=== PATIENT | male | born 2000 | race Hispanic/Latino ===

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

== ENCOUNTER 2018-07-06 22:50 | Emergency (ER) | payer OTHER ==
[2018-07-07] MEDS ORDERED: TETRACAINE HCL 0.5% 2ML OPTH ONE (00:14)
[2018-07-07] MEDS ORDERED: FLUORESCEIN SODIUM 0.6 MG/WRAP ONE (00:14)
[2018-07-07] MEDS ORDERED: LIDOCAINE 1% MPF 5 ML VIAL ONE (00:14)
--- NOTE | 2018-07-07 01:01 | ER ---
Nurse's Notes [facility] Name: Margarito Schultz Age: 17 yrs Sex: Male : 2000 Arrival Date: 07/06/2018 Time: 22:57 Bed 15 Private MD: Diagnosis: Laceration without foreign body of right eyelid and periocular area Presentation: 07/06 22:59 Presenting complaint: Patient states: I was examining the end of a pool stick when I jb4 got startled and jumped and accidently shoved the pool stick into my eye trying to move out of the way of those playing pool. 22:59 Transition of care: patient was not received from another setting of care. Complicating jb4 Factors: There are no complicating factors for this patient. Onset of symptoms was July 06, 2018. Risk Assessment: Do you want to hurt yourself or someone else? Patient reports no desire to harm self or others. Initial Sepsis Screen: Does the patient meet any 2 criteria? HR > 90 bpm. Yes Does the patient have a suspected source of infection? No. Patient's initial sepsis screen is negative. Care prior to arrival: None. 22:59 Method Of Arrival: Ambulatory jb4 22:59 Acuity: JI 3 jb4 Triage Assessment: 22:59 General: Appears in no apparent distress. comfortable, Behavior is calm, cooperative, jb4 appropriate for age. Pain: Complains of pain in right supraorbital ridge Pain does not radiate. Pain currently is 2 out of 10 on a pain scale. EENT: No signs and/or symptoms were reported regarding the EENT system. Neuro: Level of Consciousness is awake, alert, obeys commands, Oriented to person, place, time, situation, Pupils are PERRLA. Cardiovascular: Patient's skin is warm and dry. Respiratory: Airway is patent Respiratory effort is even, unlabored, Respiratory pattern is regular, symmetrical. GI: No signs and/or symptoms were reported involving the gastrointestinal system. : No signs and/or symptoms were reported regarding the genitourinary system. Derm: Skin is intact, Skin is pink, warm \T\ dry. Musculoskeletal: Circulation, motion, and sensation intact. Injury Description: Laceration sustained to right supraorbital ridge is clean, 0.5 to 2.5 cm long, not bleeding. Historical: - Allergies: 22:59 No Known Allergies; jb4 - Home Meds: 22:59 None [Active]; jb4 - PMHx: 22:59 Asthma; jb4 - PSHx: 22:59 left foot; jb4 - Immunization history:: Adult Immunizations up to date, Last tetanus immunization: up to date Flu vaccine is not up to date. - Social history:: Smoking status: Patient/guardian denies using tobacco, Patient/guardian denies using alcohol. - Ebola Screening: : No symptoms or risks identified at this time. Screenin:59 Abuse screen: Denies threats or abuse. Nutritional screening: No deficits noted. jb4 Tuberculosis screening: No symptoms or risk factors identified. Fall Risk None identified. Assessment: 22:59 General: see triage assessment.. jb4 23:54 Reassessment: Patient appears in no apparent distress at this time. Patient and/or jb4 family updated on plan of care and expected duration. Pain level reassessed. Patient is alert, oriented x 3, equal unlabored respirations, skin warm/dry/pink. 07/07 00:52 Reassessment: Patient appears in no apparent distress at this time. Patient and/or jb4 family updated on plan of care and expected duration. Pain level reassessed. Patient is alert, oriented x 3, equal unlabored respirations, skin warm/dry/pink. Provider at the bedside. 01:47 Reassessment: Patient appears in no apparent distress at this time. Patient and/or jb4 family updated on plan of care and expected duration. Pain level reassessed. Patient is alert, oriented x 3, equal unlabored respirations, skin warm/dry/pink. Discussed D/c, F/u with pt and pt's family, questions and concerns addressed, denies further questions or concerns. Vital Signs: 07/06 22:59 BP 143 / 84; Pulse 99; Resp 16; Temp 99.0(O); Pulse Ox 100% on R/A; Weight 86.64 kg jb4 (R); Height 6 ft. 2 in. (187.96 cm) (R); Pain 08/07; 23:45 BP 122 / 83; Pulse 87; Resp 16; Pulse Ox 100% on R/A; jb4 07/07 00:45 BP 124 / 76; Pulse 85; Resp 16; Pulse Ox 100% on R/A; jb4 01:47 BP 132 / 88; Pulse 73; Resp 16; Pulse Ox 93% on R/A; jb4 07/06 22:59 Body Mass Index 24.52 (86.64 kg, 187.96 cm) jb4 Visual Acuity: 07/06 23:15 Left Eye Visual acuity 20/20, Pupil size 4 mm, Normal, React To Light, Reactive To jb4 Accomodation; Right Eye Visual acuity 20/20, Pupil size 4 mm, Normal, React To Light, Reactive To Accomodation; Both Eyes Visual acuity 20/20; Without Lenses; ED Course: 22:57 Patient arrived in ED. ag3 22:59 Arm band placed on left wrist. jb4 22:59 Patient has correct armband on for positive identification. Bed in low position. Call jb4 light in reach. Side rails up X 1. Pulse ox on. NIBP on. 23:06 Eldon Rowe RN is Primary Nurse. jb4 23:10 Triage completed. jb4 23:21 Partha Phillips NP is PHCP. pm1 23:21 Paulina Lenz MD is Attending Physician. pm1 07/07 00:33 Assist provider with laceration repair on right supraorbital ridge that was 2.5 cm. or jb4 less using sutures. Set up tray. Performed by Partha Phillips NP Patient tolerated well. 01:49 Patient did not have IV access during this emergency room visit. jb4 Administered Medications: 00:33 Drug: Lidocaine (1 %) 5 ml {Note: administered by ER provider.} Volume: 5 ml; Route: jb4 Infiltration; 01:51 Follow up: Response: No adverse reaction jb4 00:50 Drug: Tetracaine Drops 0.5 % 1 drops Route: Ophthalmic; Site: right eye; jb4 01:09 Follow up: Response: No adverse reaction; Administered by ER provider. jb4 01:47 Drug: Gentamicin Drops 0.3 % 2 drops Route: Ophthalmic; Site: right eye; jb4 01:51 Follow up: Response: No adverse reaction jb4 Intake: Outcome: : Discharge ordered by . pm1 01:47 Discharged to home ambulatory, with family. jb4 01:47 Condition: stable 01:47 Discharge instructions given to patient, family, Instructed on discharge instructions, follow up and referral plans. medication usage, Demonstrated understanding of instructions, follow-up care, medications, Prescriptions given X 1. 01:52 Patient left the ED. jb4 Signatures: Partha Phillips NP FULL CHARGE BOOKKEEPER pm1 Eldon Rowe RN RN jb4 Kellie Hernandez ag3
--- NOTE | 2018-07-07 01:01 | EDPHYS ---
Physician Documentation [facility] Name: Margarito Schultz Age: 17 yrs Sex: Male : 2000 Arrival Date: 07/06/2018 Time: 22:57 Bed 15 Private MD: ED Physician Paulina Lenz HPI: 07/07 00:00 This 17 yrs old Male presents to ER via Ambulatory with complaints of pm1 Laceration right eyelid. 00:00 The patient sustained Laceration to right eyelid, caused by pool cue. Onset: The pm1 symptoms/episode began/occurred just prior to arrival. Aggravated by nothing. Alleviated by nothing. Associated signs and symptoms: Pertinent negatives: visual changes. Patient wears soft contacts. The patient has not experienced similar symptoms in the past. Patient was holding a pool cue that did not have the rounded tip to it. The ball on the pool table jumped off the table towards him so he moved out of the way. He accidentally poked his right eyelid causing a laceration. His contact on the right eye popped out. Reports no visual deficits to right eye. Tetanus shot 2 years ago. Historical: - Allergies: 07/06 22:59 No Known Allergies; jb4 - Home Meds: 22:59 None [Active]; jb4 - PMHx: 22:59 Asthma; jb4 - PSHx: 22:59 left foot; jb4 - Immunization history:: Adult Immunizations up to date, Last tetanus immunization: up to date Flu vaccine is not up to date. - Social history:: Smoking status: Patient/guardian denies using tobacco, Patient/guardian denies using alcohol. - Ebola Screening: : No symptoms or risks identified at this time. ROS: 07/07 00:00 Constitutional: Negative for fever, chills, and weight loss, ENT: Negative for injury, pm1 pain, and discharge, Neck: Negative for injury, pain, and swelling, Cardiovascular: Negative for chest pain, palpitations, and edema, Respiratory: Negative for shortness of breath, cough, wheezing, and pleuritic chest pain. Abdomen/GI: Negative for abdominal pain, nausea, vomiting, diarrhea, and constipation, Back: Negative for injury and pain, : Negative for injury, bleeding, discharge, and swelling, MS/Extremity: Negative for injury and deformity, Skin: Negative for injury, rash, and discoloration, Neuro: Negative for headache, weakness, numbness, tingling, and seizure. Eyes: Positive for redness, of the right eye, laceration to right eyelid, Negative for blurry vision, foreign body sensation, vision loss, visual disturbance. Exam: 00:00 Visual Acuity: I have reviewed the nursing documentation. pm1 00:00 Constitutional: This is a well developed, well nourished patient who is awake, alert, and in no acute distress. Head/Face: Normocephalic, atraumatic. ENT: Nares patent. No nasal discharge, no septal abnormalities noted. Tympanic membranes are normal and external auditory canals are clear. Oropharynx with no redness, swelling, or masses, exudates, or evidence of obstruction, uvula midline. Mucous membranes moist. 00:00 Neck: Trachea midline, no thyromegaly or masses palpated, and no cervical lymphadenopathy. Supple, full range of motion without nuchal rigidity, or vertebral point tenderness. No Meningismus. Chest/axilla: Normal chest wall appearance and motion. Nontender with no deformity. No lesions are appreciated. Cardiovascular: Regular rate and rhythm with a normal S1 and S2. No gallops, murmurs, or rubs. Normal PMI, no JVD. No pulse deficits. Respiratory: Lungs have equal breath sounds bilaterally, clear to auscultation and percussion. No rales, rhonchi or wheezes noted. No increased work of breathing, no retractions or nasal flaring. Abdomen/GI: Soft, non-tender, with normal bowel sounds. No distension or tympany. No guarding or rebound. No evidence of tenderness throughout. Back: No spinal tenderness. No costovertebral tenderness. Full range of motion. Skin: Warm, dry with normal turgor. Normal color with no rashes, no lesions, and no evidence of cellulitis. MS/ Extremity: Pulses equal, no cyanosis. Neurovascular intact. Full, normal range of motion. 00:00 Eyes: Pupils: no acute changes, normal size, normal reaction to light, Extraocular movements: intact throughout, Conjunctiva: injected, in the right eye, Corneas: abrasion, is not appreciated, foreign body, is not appreciated, a fluorescein strip employed to appreciate the findings, Sclera: no appreciated abnormality, Lids and lashes: laceration, approximately 20 mm(s), of the right upper eyelid. 00:00 Neuro: Orientation: is normal, Motor: is normal, Gait: is steady, at a normal pace, without difficulty. Vital Signs: 07/06 22:59 BP 143 / 84; Pulse 99; Resp 16; Temp 99.0(O); Pulse Ox 100% on R/A; Weight 86.64 kg jb4 (R); Height 6 ft. 2 in. (187.96 cm) (R); Pain 08/07; 23:45 BP 122 / 83; Pulse 87; Resp 16; Pulse Ox 100% on R/A; jb4 07/07 00:45 BP 124 / 76; Pulse 85; Resp 16; Pulse Ox 100% on R/A; jb4 01:47 BP 132 / 88; Pulse 73; Resp 16; Pulse Ox 93% on R/A; jb4 07/06 22:59 Body Mass Index 24.52 (86.64 kg, 187.96 cm) jb4 Visual Acuity: 07/06 23:15 Left Eye Visual acuity 20/20, Pupil size 4 mm, Normal, React To Light, Reactive To jb4 Accomodation; Right Eye Visual acuity 20/20, Pupil size 4 mm, Normal, React To Light, Reactive To Accomodation; Both Eyes Visual acuity 20/20; Without Lenses; Laceration: 07/07 00:58 Wound Repair of 2cm ( 0.8in ) subcutaneous laceration to right supraorbital ridge. pm1 Linear shaped.. Distal neuro/vascular/tendon intact. Anesthesia: Local anesthetic administered with 1 mls of 1% lidocaine. Wound prep: Extensive cleansing with hibiclenz by nj, Wound irrigation with saline by nj, Wound explored extensively, Copious irrigation. Skin closed with 7 7-0 Prolene using simple sutures and sterile technique. Dressed with Neosporin. Patient tolerated well. MDM: 07/06 23:26 Patient medically screened. pm1 07/07 00:58 Data reviewed: vital signs. Data interpreted: Pulse oximetry: on room air is 100 %. pm1 Interpretation: normal. Counseling: I had a detailed discussion with the patient and/or guardian regarding: the historical points, exam findings, and any diagnostic results supporting the discharge/admit diagnosis, the need for outpatient follow up, suture removal in 4-5 days, to return to the emergency department if symptoms worsen or persist or if there are any questions or concerns that arise at home. 01:14 ED course: No corneal abrasion visualized on eye examination, however patient's soft pm1 contact was removed by injury. Will cover the patient with pseudomonas coverage. 07/06 23:59 Order name: Visual Acuity; Complete Time: 00:01 pm1 07/06 23:59 Order name: Eye Tray; Complete Time: 00:09 pm1 07/06 23:59 Order name: Fluoresene Opth strip; Complete Time: 00:09 pm1 07/06 23:59 Order name: Prolene, Sutures; Complete Time: 00:14 pm1 07/06 23:59 Order name: Dressing - Wound; Complete Time: 01:10 pm1 07/06 23:59 Order name: Gloves, Sterile; Complete Time: 00:10 pm1 07/06 23:59 Order name: Setup Suture Tray; Complete Time: 00:09 pm1 Administered Medications: 00:33 Drug: Lidocaine (1 %) 5 ml {Note: administered by ER provider.} Volume: 5 ml; Route: jb4 Infiltration; 01:51 Follow up: Response: No adverse reaction jb4 00:50 Drug: Tetracaine Drops 0.5 % 1 drops Route: Ophthalmic; Site: right eye; jb4 01:09 Follow up: Response: No adverse reaction; Administered by ER provider. jb4 01:47 Drug: Gentamicin Drops 0.3 % 2 drops Route: Ophthalmic; Site: right eye; jb4 01:51 Follow up: Response: No adverse reaction jb4 Disposition: 02:53 Co-signature as Attending Physician, Paulina Lenz MD. nc2 Disposition: 07/07/18 01:01 Discharged to Home. Impression: Laceration without foreign body of right eyelid and periocular area. - Condition is Stable. - Discharge Instructions: Facial Laceration. - Prescriptions for Ciloxan 0.3 % Ophthalmic Drops - instill 2 drop by OPHTHALMIC route every 6 hours for 7 days; 5 milliliter. - Medication Reconciliation Form, Thank You Letter, Antibiotic Education form. - Follow up: Emergency Department; When: As needed; Reason: Worsening of condition. Follow up: Private Physician; When: 2 - 3 days; Reason: Recheck today's complaints, Continuance of care, Re-evaluation by your physician. - Problem is new. - Symptoms have improved. Signatures: Partha Phillips NP NURSING INFORMATION SYSTEMS COORDINATOR pm1 Eldon Rowe, RN RN jb4 Paulina Lenz MD MD ma2 Corrections: (The following items were deleted from the chart) 01:52 01:01 07/07/2018 01:01 Discharged to Home. Impression: Laceration without foreign body jb4 of right eyelid and periocular area. Condition is Stable. Forms are Medication Reconciliation Form, Thank You Letter, Antibiotic Education, Prescription Opioid Use. Follow up: Emergency Department; When: As needed; Reason: Worsening of condition. Follow up: Private Physician; When: 2 - 3 days; Reason: Recheck today's complaints, Continuance of care, Re-evaluation by your physician. Problem is new. Symptoms have improved. pm1
[2018-07-07] MEDS ORDERED: GENTAMICIN 0.3% OPTH DROP 5ML ONE (01:42)
== END 2018-07-07 01:52 | disposition home or self-care (01) ==
LOC: ER 22:50
PROC: 0JQ10ZZ Repair Face Subcutaneous Tissue and Fascia, Open Approach (ICD-10-PCS; principal; 2018-07-06)
DX: S01.111A Laceration without foreign body of right eyelid and periocular area, initial encounter (principal); W22.8XXA Striking against or struck by other objects, initial encounter
CPT/HCPCS: 99284

== ENCOUNTER 2018-07-12 16:10 | Emergency (ER) | payer OTHER ==
--- NOTE | 2018-07-12 16:37 | ER ---
Nurse's Notes [facility] Name: Margarito Schultz Age: 17 yrs Sex: Male : 2000 Arrival Date: 07/12/2018 Time: 16:14 Bed 11 Private MD: Diagnosis: Encounter for removal of sutures Presentation: 07/12 16:32 Presenting complaint: Patient states: needs sutures removed from right eyelid. iw Transition of care: patient was not received from another setting of care. Onset of symptoms was July 12, 2018. Risk Assessment: Do you want to hurt yourself or someone else? Patient reports no desire to harm self or others. Initial Sepsis Screen: Does the patient meet any 2 criteria? No. Patient's initial sepsis screen is negative. Does the patient have a suspected source of infection? No. Patient's initial sepsis screen is negative. Care prior to arrival: None. 16:32 Method Of Arrival: Ambulatory iw 16:32 Acuity: JI 5 iw 16:32 Presenting complaint: Patient states: i am here for suture removal in my right eyelid. mg2 suture applied 6 days ago. Transition of care: patient was not received from another setting of care. Onset of symptoms was June 2018. Risk Assessment: Do you want to hurt yourself or someone else? Patient reports no desire to harm self or others. Initial Sepsis Screen: Does the patient meet any 2 criteria? No. Patient's initial sepsis screen is negative. Does the patient have a suspected source of infection? No. Patient's initial sepsis screen is negative. Care prior to arrival: None. 16:32 Method Of Arrival: Ambulatory mg2 16:32 Acuity: JI 5 mg2 Historical: - Allergies: 16:34 No Known Allergies; mg2 - Home Meds: 16:34 None [Active]; mg2 - PMHx: 16:33 Asthma; iw 16:34 None; mg2 - PSHx: 16:33 left foot; iw 16:34 left foor surgery; mg2 - Immunization history:: Flu vaccine status is unknown. - Social history:: Smoking status: Patient/guardian denies using tobacco, Patient/guardian denies using alcohol, street drugs, IV drugs. - Ebola Screening: : Patient negative for fever greater than or equal to 101.5 degrees Fahrenheit, and additional compatible Ebola Virus Disease symptoms Patient denies exposure to infectious person Patient denies travel to an Ebola-affected area in the 21 days before illness onset No symptoms or risks identified at this time No symptoms or risks identified at this time. Screenin:34 Abuse screen: Denies threats or abuse. Denies injuries from another. Nutritional iw screening: No deficits noted. Tuberculosis screening: No symptoms or risk factors identified. Fall Risk None identified. Assessment: 16:34 General: Appears in no apparent distress. comfortable, Behavior is calm, cooperative. iw Pain: Denies pain. Neuro: Level of Consciousness is awake, alert, obeys commands, Oriented to person, place, time, situation, Moves all extremities. Full function. Cardiovascular: Patient's skin is warm and dry. Derm: Skin is intact, is healthy with good turgor. Vital Signs: 16:34 BP 122 / 63; Pulse 86; Resp 18; Temp 98.7; Pulse Ox 100% on R/A; Weight 85.28 kg; mg2 Height 6 ft. 2 in. (187.96 cm); Pain 0/10; 16:34 Body Mass Index 24.14 (85.28 kg, 187.96 cm) mg2 ED Course: 16:14 Patient arrived in ED. sb2 16:22 Ganga Urban PA is PHCP. jr8 16:22 Mehdi Pinto MD is Attending Physician. jr8 16:24 Ridge Cui, LEAH is Primary Nurse. mg2 16:33 Triage completed. iw 16:34 Arm band placed on. iw 16:52 Patient has correct armband on for positive identification. Pulse ox on. NIBP on. mg2 16:52 No provider procedures requiring assistance completed. Patient did not have IV access mg2 during this emergency room visit. Wound care: to laceration located on right eyelid was suture removed-7 stitches Patient tolerated well. Administered Medications: No medications were administered Outcome: 16:36 Discharge ordered by . jr8 16:53 Discharged to home ambulatory, with family. mg2 16:53 Condition: stable 16:53 Discharge instructions given to patient, family, Instructed on discharge instructions, follow up and referral plans. Demonstrated understanding of instructions, follow-up care. 16:53 Patient left the ED. mg2 Signatures: Argentina Callahan RN RN Ganga Urban PA PA jr8 Carlita Marvin sb2 Ridge Cui RN RN mg2
--- NOTE | 2018-07-12 16:37 | EDPHYS ---
Physician Documentation [facility] Name: Margarito Schultz Age: 17 yrs Sex: Male : 2000 Arrival Date: 07/12/2018 Time: 16:14 Bed 11 Private MD: ED Physician Mehdi Pinto HPI: 07/12 16:48 This 17 yrs old Male presents to ER via Ambulatory with complaints of Suture jr8 Removal. 16:48 The patient has sutures on the right eye. Previous treatment: The patient was initially jr8 treated 6 day(s) ago. Sutures/timi progress: The patient has no c/o's. The wound is well-healing with no redness, swelling, discharge, or dehiscence reported. The patient has not experienced similar symptoms in the past. The patient has not recently seen a physician. Historical: - Allergies: 16:34 No Known Allergies; mg2 - Home Meds: 16:34 None [Active]; mg2 - PMHx: 16:33 Asthma; iw 16:34 None; mg2 - PSHx: 16:33 left foot; iw 16:34 left foor surgery; mg2 - Immunization history:: Flu vaccine status is unknown. - Social history:: Smoking status: Patient/guardian denies using tobacco, Patient/guardian denies using alcohol, street drugs, IV drugs. - Ebola Screening: : Patient negative for fever greater than or equal to 101.5 degrees Fahrenheit, and additional compatible Ebola Virus Disease symptoms Patient denies exposure to infectious person Patient denies travel to an Ebola-affected area in the 21 days before illness onset No symptoms or risks identified at this time No symptoms or risks identified at this time. ROS: 16:48 Constitutional: Negative for fever, chills, and weight loss. jr8 16:48 All other systems are negative. Exam: 16:48 Head/Face: Normocephalic, atraumatic. ENT: Nares patent. No nasal discharge, no jr8 septal abnormalities noted. Tympanic membranes are normal and external auditory canals are clear. Oropharynx with no redness, swelling, or masses, exudates, or evidence of obstruction, uvula midline. Mucous membranes moist. Cardiovascular: Regular rate and rhythm with a normal S1 and S2. No gallops, murmurs, or rubs. Normal PMI, no JVD. No pulse deficits. Respiratory: Lungs have equal breath sounds bilaterally, clear to auscultation and percussion. No rales, rhonchi or wheezes noted. No increased work of breathing, no retractions or nasal flaring. Skin: Warm, dry with normal turgor. Normal color with no rashes, no lesions, and no evidence of cellulitis. MS/ Extremity: Pulses equal, no cyanosis. Neurovascular intact. Full, normal range of motion. Neuro: Awake and alert, GCS 15, oriented to person, place, time, and situation. Cranial nerves II-XII grossly intact. Motor strength 5/5 in all extremities. Sensory grossly intact. Cerebellar exam normal. Normal gait. 16:48 Eyes: Periorbital structures: appear normal, Pupils: equal, round, and reactive to light and accomodation, Extraocular movements: intact throughout, Conjunctiva: normal, Corneas: are normal, Sclera: no appreciated abnormality, Anterior chamber: normal, Lids and lashes: small 2 cm laceration with sutures in place noted to right eyelid. Mild bruising still present. No erythema or discharge. well approximated . Vital Signs: 16:34 BP 122 / 63; Pulse 86; Resp 18; Temp 98.7; Pulse Ox 100% on R/A; Weight 85.28 kg; mg2 Height 6 ft. 2 in. (187.96 cm); Pain 0/10; 16:34 Body Mass Index 24.14 (85.28 kg, 187.96 cm) mg2 Procedures: 16:48 Suture/Staple removal: Removed 10 sutures, from right eyelid, site appears well healed, jr8 dressed with Neosporin, Patient tolerated well. MDM: 16:22 Patient medically screened. 8 16:36 Data reviewed: vital signs, nurses notes, and as a result, I will discharge patient. 8 Data interpreted: Pulse oximetry: on room air is 100 %. Interpretation: normal. Counseling: I had a detailed discussion with the patient and/or guardian regarding: the historical points, exam findings, and any diagnostic results supporting the discharge/admit diagnosis, the need for outpatient follow up, a family practitioner, to return to the emergency department if symptoms worsen or persist or if there are any questions or concerns that arise at home. Administered Medications: No medications were administered Disposition: 18:11 Co-signature as Attending Physician, Mehdi Pinto MD Available for consultation at ps1 all times . Disposition: 07/12/18 16:36 Discharged to Home. Impression: Encounter for removal of sutures. - Condition is Stable. - Discharge Instructions: Suture Removal, Care After. - Medication Reconciliation Form, Thank You Letter, Antibiotic Education, Prescription Opioid Use form. - Follow up: Private Physician; When: As needed; Reason: Wound Recheck, Recheck today's complaints, Continuance of care, Re-evaluation by your physician. - Problem is new. - Symptoms have improved. Signatures: Argentina Callahan, RN RN iw Ganga Urban PA PA jr8 Mehdi Pinto MD MD ps1 Ridge Cui RN RN mg2 Corrections: (The following items were deleted from the chart) 16:53 16:36 07/12/2018 16:36 Discharged to Home. Impression: Encounter for removal of mg2 sutures. Condition is Stable. Forms are Medication Reconciliation Form, Thank You Letter, Antibiotic Education, Prescription Opioid Use. Follow up: Private Physician; When: As needed; Reason: Wound Recheck, Recheck today's complaints, Continuance of care, Re-evaluation by your physician. Problem is new. Symptoms have improved. jr8
== END 2018-07-12 16:53 | disposition home or self-care (01) ==
LOC: ER 16:10
DX: S01.111D Laceration without foreign body of right eyelid and periocular area, subsequent encounter (principal); W22.8XXD Striking against or struck by other objects, subsequent encounter
CPT/HCPCS: 99283

== ENCOUNTER 2018-11-19 18:14 | Emergency (ER) | payer OTHER ==
[2018-11-19 20:33] LABS: Absolute Lymphocytes (CBC) 1.7 K/uL (0.7-4.9); Absolute Monocytes 0.3 K/uL (0.1-1.3); Absolute Neutrophil 2.7 K/uL (1.8-8.0); Basophils % 0.5 % (0-1.3); Eosinophils % 1.5 % (0-4.4); Hematocrit 43.8 % (39.6-49.0); Lymphocytes % 35.4 % (15.3-44.8); MPV 8.8 fL (7.6-11.3); Monocytes % 6.2 % (3.3-12.3); RBC Red Blood Cell Count 4.85 M/uL (4.33-5.43)
--- NOTE | 2018-11-19 20:48 | RAD REPORT ---
EXAM DESCRIPTION: RAD - Chest Single View - 11/19/2018 8:41 pm CLINICAL HISTORY: PALPITATIONS Chest pain. COMPARISON: Chest Pa And Lat (2 Views) dated 08/18/2016 FINDINGS: Portable technique limits examination quality. The lungs are grossly clear. The heart is normal in size. No displaced fractures. IMPRESSION: No acute intrathoracic process suspected.
[2018-11-19 20:53] LABS: BUN Blood Urea Nitrogen 14 mg/dL (7-18); Bicarbonate 30 mmol/L (21-32); Glucose Level 87 mg/dL (74-106); Potassium 4.1 mmol/L (3.5-5.1); Sodium Level 141 mmol/L (136-145); Thyroid Stimulating Hormone 0.591 uIU/mL (0.360-3.740)
--- NOTE | 2018-11-19 21:22 | ER ---
Nurse's Notes [facility] Name: Margarito Schultz Age: 18 yrs Sex: Male : 2000 Arrival Date: 11/19/2018 Time: 18:19 Bed 28 Private MD: Unknown, Unknown Diagnosis: Palpitation. Supericial thrombosed vein right loer quadrant of abdomen Presentation: 11/19 18:30 Presenting complaint: Patient states: I have been having a weird feeling in my chest la1 every once and a while the last few days. Since then I have been very aware of my heart beat. Transition of care: patient was not received from another setting of care. Onset of symptoms was November 19, 2018. Risk Assessment: Do you want to hurt yourself or someone else? Patient reports no desire to harm self or others. Initial Sepsis Screen: Does the patient meet any 2 criteria? No. Patient's initial sepsis screen is negative. Does the patient have a suspected source of infection? No. Patient's initial sepsis screen is negative. Care prior to arrival: None. 18:30 Method Of Arrival: Ambulatory la1 18:30 Acuity: JI 3 la1 Historical: - Allergies: 18:30 No Known Allergies; la1 - Home Meds: 18:30 None [Active]; la1 - PMHx: 18:30 Asthma; la1 - Immunization history:: Adult Immunizations up to date. - Social history:: Smoking status: Patient/guardian denies using tobacco. - Ebola Screening: : No symptoms or risks identified at this time. Screenin:00 Fall Risk None identified. fu Assessment: 20:28 General: Appears in no apparent distress. Behavior is calm, cooperative, appropriate fu for age, Reports shortness of breath when having chest discomfort, that started about 2 weeks ago. Denies fever, fatigue, chills. Pain: Denies pain. Neuro: No deficits noted. Cardiovascular: Reports chest discomfort. since 2 weeks ago. Denies diaphoresis, fatigue, lightheadedness, nausea, palpitations, syncope, vomiting, Rhythm is regular. Respiratory: Airway is patent Respiratory effort is even, unlabored. GI: No signs and/or symptoms were reported involving the gastrointestinal system. : No signs and/or symptoms were reported regarding the genitourinary system. Derm: No signs and/or symptoms reported regarding the dermatologic system. Musculoskeletal: No signs and/or symptoms reported regarding the musculoskeletal system. 21:30 Reassessment: Patient is alert, oriented x 3, equal unlabored respirations, skin fu warm/dry/pink. Vital Signs: 18:29 BP 147 / 83; la1 18:29 Pulse 89; Resp 16; Temp 97.9(TE); Pulse Ox 98% on R/A; Weight 83.91 kg; Height 6 ft. 0 la1 in. (182.88 cm); 20:30 BP 124 / 82; Pulse 81; Resp 18; Pulse Ox 100% ; Pain 0/10; fu 18:29 Body Mass Index 25.09 (83.91 kg, 182.88 cm) la1 ED Course: 18:19 Patient arrived in ED. ag5 18:20 Unknown, Unknown is Private Physician. ag5 18:31 Triage completed. la1 18:31 Arm band placed on left wrist. la1 19:26 Francisco J Clements, RN is Primary Nurse. fu 19:38 Norm Blake MD is Attending Physician. pkl 20:00 Bed in low position. Side rails up X2. fu 20:22 Initial lab(s) drawn, by me, sent to lab. EKG done, by ED staff. Inserted saline lock: lt1 20 gauge in left antecubital area, using aseptic technique. 20:42 XRAY CXR (1 view) In Process Unspecified. EDMS 21:20 Salomón Mora MD is Referral Physician. pkl 21:40 No provider procedures requiring assistance completed. IV discontinued, bleeding fu controlled. Administered Medications: No medications were administered Outcome: 21:22 Discharge ordered by . pkl 21:46 Discharge instructions given to patient, Instructed on discharge instructions, follow fu up and referral plans. Demonstrated understanding of instructions, follow-up care. 22:06 Patient left the ED. fu Signatures: Dispatcher [employer] EDMS Norm Blake MD MD pk Marky Salvador RN RN [facility] Francisco J Clements RN RN fu [place], [address] Tessa Hwang lt1 Corrections: (The following items were deleted from the chart) 18:32 18:29 Pulse 106bpm; Resp 16bpm; Pulse Ox 98% RA; Temp 97.9F Temporal; 83.91 kg; Height la1 6 ft. 0 in.; BMI: 25.0; la1 22:04 22:02 Condition: stable fu fu
--- NOTE | 2018-11-19 21:22 | EDPHYS ---
Physician Documentation [facility] Name: Margarito Schultz Age: 18 yrs Sex: Male : 2000 Arrival Date: 11/19/2018 Time: 18:19 Bed 28 Private MD: Unknown, Unknown ED Physician Norm Blake HPI: 11/19 20:18 This 18 yrs old Male presents to ER via Ambulatory with complaints of pkl Shortness Of Breath, Chest Pounding. 20:18 The patient presents with a history of heart racing. Onset: The symptoms/episode pkl began/occurred 3 week(s) ago. Associated signs and symptoms: Pertinent positives: SOB, pain anterior right upper thigh that resolved after a few days. Patient also noticed a short segment of thrombosed vein ( about 4 cm ) on the right lower quadrant of abdomen that persisted until now. Patient said the patient said the palpitations recurred again a few times over the last few days. Historical: - Allergies: 18:30 No Known Allergies; la1 - Home Meds: 18:30 None [Active]; la1 - PMHx: 18:30 Asthma; la1 - Immunization history:: Adult Immunizations up to date. - Social history:: Smoking status: Patient/guardian denies using tobacco. - Ebola Screening: : No symptoms or risks identified at this time. ROS: 20:18 Eyes: Negative for injury, pain, redness, and discharge, ENT: Negative for injury, pkl pain, and discharge, Neck: Negative for injury, pain, and swelling. 20:18 Cardiovascular: Positive for palpitations. 20:18 Respiratory: Negative for cough, shortness of breath. 20:18 Abdomen/GI: Negative for abdominal pain, nausea, vomiting, and diarrhea. 20:18 Back: Negative for acute changes. 20:18 : Negative for urinary symptoms. 20:18 MS/extremity: Negative for acute changes. 20:18 Skin: Positive for short segment ( about 4 cm ) thrombosed vein at right quadrant of abdomen. 20:18 Neuro: Negative for altered mental status. Exam: 20:18 Head/Face: Normocephalic, atraumatic. Eyes: Pupils equal round and reactive to light, pkl extra-ocular motions intact. Lids and lashes normal. Conjunctiva and sclera are non-icteric and not injected. Cornea within normal limits. Periorbital areas with no swelling, redness, or edema. ENT: Nares patent. No nasal discharge, no septal abnormalities noted. Tympanic membranes are normal and external auditory canals are clear. Oropharynx with no redness, swelling, or masses, exudates, or evidence of obstruction, uvula midline. Mucous membranes moist. Neck: Trachea midline, no thyromegaly or masses palpated, and no cervical lymphadenopathy. Supple, full range of motion without nuchal rigidity, or vertebral point tenderness. No Meningismus. Chest/axilla: Normal chest wall appearance and motion. Nontender with no deformity. No lesions are appreciated. Cardiovascular: Regular rate and rhythm with a normal S1 and S2. No gallops, murmurs, or rubs. Normal PMI, no JVD. No pulse deficits. Respiratory: Lungs have equal breath sounds bilaterally, clear to auscultation and percussion. No rales, rhonchi or wheezes noted. No increased work of breathing, no retractions or nasal flaring. 20:18 Abdomen/GI: Bowel sounds: normal, Palpation: abdomen is soft and non-tender, in all quadrants, short segment ( about 4 cm ) of thrombosed vein noted at right lower quadrant. 20:18 Back: Exam negative for acute changes. 20:18 : Exam negative for acute changes. 20:18 Musculoskeletal/extremity: Exam is negative for acute changes. 20:18 Skin: Exam negative for rash. 20:18 Neuro: Orientation: is normal, Mentation: is normal, Cranial nerves: grossly normal, Motor: is normal, Gait: is steady. Vital Signs: 18:29 BP 147 / 83; la1 18:29 Pulse 89; Resp 16; Temp 97.9(TE); Pulse Ox 98% on R/A; Weight 83.91 kg; Height 6 ft. 0 la1 in. (182.88 cm); 20:30 BP 124 / 82; Pulse 81; Resp 18; Pulse Ox 100% ; Pain 0/10; fu 18:29 Body Mass Index 25.09 (83.91 kg, 182.88 cm) la1 MDM: 19:39 Patient medically screened. pkl 21:20 Data reviewed: vital signs, nurses notes, lab test result(s), radiologic studies, plain pkl films. 21:22 ED course: Discussed lab. and X'rays with patient and Mother. Advised to follow with [facility] ( Dr. Mora ) next week. Also to take a baby aspirin daily for the superficial thrombosed vein. Patient and Mother understood the instructions. 11/19 20:06 Order name: CBC with Diff; Complete Time: 21:12 pkl 11/19 20:06 Order name: Chem 7; Complete Time: 21:12 pkl 11/19 20:06 Order name: D-Dimer; Complete Time: 21:12 pkl 11/19 20:06 Order name: XRAY CXR (1 view); Complete Time: 21:12 pkl 11/19 20:06 Order name: TSH; Complete Time: 21:12 pk Administered Medications: No medications were administered Disposition: 11/19/18 21:22 Discharged to Home. Impression: Palpitation. Supericial thrombosed vein right loer quadrant of abdomen. - Condition is Stable. - Medication Reconciliation Form, Thank You Letter, Antibiotic Education, Prescription Opioid Use form. - Follow up: Salomón Mora MD; When: 2 - 3 days; Reason: Re-evaluation by your physician. - Problem is new. - Symptoms have improved. Signatures: Dispatcher [employer] [facility] Norm Blake MD MD Marky Chavez RN RN laFrancisco J Jasmine RN RN fu Corrections: (The following items were deleted from the chart) 21:36 20:06 URINE DRUG SCREEN+CHEM UR.LAB.BRZ ordered. [facility] EDOK 22:06 21:22 11/19/2018 21:22 Discharged to Home. Impression: Palpitation. Supericial fu thrombosed vein right loer quadrant of abdomen. Condition is Stable. Forms are Medication Reconciliation Form, Thank You Letter, Antibiotic Education, Prescription Opioid Use. Follow up: Salomón Mora; When: 2 - 3 days; Reason: Re-evaluation by your physician. Problem is new. Symptoms have improved. [facility]
--- NOTE | 2018-11-20 10:07 | EKG ---
Test Date: 2018-11-19 Test Time: 19:19:06 Market Development Analyst: RAMY MEASUREMENT RESULTS: Intervals: Rate: 79 NH: 152 QRSD: 90 QT: 356 QTc: 408 [place]: P: 63 NH: 152 QRS: 78 T: 63 INTERPRETIVE STATEMENTS: Normal sinus rhythm Normal ECG No previous ECG available for comparison Electronically Signed On 11-20-18 10:05:29 CDT by Po Berrios
== END 2018-11-19 22:06 | disposition home or self-care (01) ==
LOC: ER 18:14
DX: R00.2 Palpitations (principal); I82.890 Acute embolism and thrombosis of other specified veins; J45.909 Unspecified asthma, uncomplicated
CPT/HCPCS: 36415; 71045; 80048; 84443; 85025; 85379; 93005; 99284

== ENCOUNTER 2019-02-11 18:03 | Emergency (ER) | payer OTHER ==
[2019-02-11 18:58] LABS: Absolute Lymphocytes (CBC) 3.3 K/uL (0.7-4.9); Basophils % 0.4 % (0-1.3); Hematocrit 41.4 % (39.6-49.0); MPV 8.6 fL (7.6-11.3); RBC Red Blood Cell Count 4.64 M/uL (4.33-5.43)
--- NOTE | 2019-02-11 19:07 | RAD REPORT ---
EXAM DESCRIPTION: RAD - Chest Pa And Lat (2 Views) - 02/11/2019 7:02 pm CLINICAL HISTORY: DYSPNEA Chest pain. COMPARISON: Chest Single View dated 11/19/2018; Chest Pa And Lat (2 Views) dated 08/18/2016 FINDINGS: The lungs are clear. The heart is normal in size. No displaced fractures. IMPRESSION: No acute or concerning finding suspected.
[2019-02-11 19:15] LABS: Potassium 3.8 mmol/L (3.5-5.1)
--- NOTE | 2019-02-11 19:29 | EDPHYS ---
Physician Documentation [facility] Name: Margarito Schultz Age: 18 yrs Sex: Male : 2000 Arrival Date: 02/11/2019 Time: 18:05 Bed 14 Private MD: ED Physician Greg Wheeler HPI: 02/11 19:10 This 18 yrs old Male presents to ER via Ambulatory with complaints of jr8 Shortness Of Breath, Chest Congestion. 19:10 The patient has shortness of breath at rest. Onset: The symptoms/episode began/occurred jr8 gradually, 2 month(s) ago. Duration: The symptoms are intermittent. The patient's shortness of breath has no apparent modifying factors. Associated signs and symptoms: The patient has no apparent associated signs or symptoms. Severity of symptoms: At their worst the symptoms were mild in the emergency department the symptoms are unchanged. The patient has experienced a previous episode. The patient has been recently seen by a physician: the patient's primary care provider, with similar presenting complaints. Patient stated that for the past couple of months has had intermittent shortness of breath and a "body surge" like feeling. Stated that it will feel like he is breathing through a straw. Saw PCP last week and was given prednisone and albuterol. Came today for acute episode. History of asthma but cannot remember last asthma attack . Historical: - Allergies: 18:12 No Known Allergies; hb - PMHx: 18:12 Asthma; hb - Immunization history:: Adult Immunizations up to date. - Social history:: Smoking status: Patient/guardian denies using tobacco. - Ebola Screening: : No symptoms or risks identified at this time. ROS: 19:10 Eyes: Negative for injury, pain, redness, and discharge, ENT: Negative for injury, jr8 pain, and discharge, Neck: Negative for injury, pain, and swelling, Cardiovascular: Negative for chest pain, palpitations, and edema, Abdomen/GI: Negative for abdominal pain, nausea, vomiting, diarrhea, and constipation, Back: Negative for injury and pain, MS/Extremity: Negative for injury and deformity, Skin: Negative for injury, rash, and discoloration, Neuro: Negative for headache, weakness, numbness, tingling, and seizure. 19:10 Respiratory: Positive for shortness of breath, Negative for cough, dyspnea on exertion, hemoptysis, orthopnea, sputum production, wheezing. Exam: 19:10 Eyes: Pupils equal round and reactive to light, extra-ocular motions intact. Lids and jr8 lashes normal. Conjunctiva and sclera are non-icteric and not injected. Cornea within normal limits. Periorbital areas with no swelling, redness, or edema. ENT: Nares patent. No nasal discharge, no septal abnormalities noted. Tympanic membranes are normal and external auditory canals are clear. Oropharynx with no redness, swelling, or masses, exudates, or evidence of obstruction, uvula midline. Mucous membranes moist. Neck: Trachea midline, no thyromegaly or masses palpated, and no cervical lymphadenopathy. Supple, full range of motion without nuchal rigidity, or vertebral point tenderness. No Meningismus. Chest/axilla: Normal chest wall appearance and motion. Nontender with no deformity. No lesions are appreciated. Cardiovascular: Regular rate and rhythm with a normal S1 and S2. No gallops, murmurs, or rubs. Normal PMI, no JVD. No pulse deficits. Respiratory: Lungs have equal breath sounds bilaterally, clear to auscultation and percussion. No rales, rhonchi or wheezes noted. No increased work of breathing, no retractions or nasal flaring. Abdomen/GI: Soft, non-tender, with normal bowel sounds. No distension or tympany. No guarding or rebound. No evidence of tenderness throughout. Back: No spinal tenderness. No costovertebral tenderness. Full range of motion. Skin: Warm, dry with normal turgor. Normal color with no rashes, no lesions, and no evidence of cellulitis. MS/ Extremity: Pulses equal, no cyanosis. Neurovascular intact. Full, normal range of motion. Neuro: Awake and alert, GCS 15, oriented to person, place, time, and situation. Cranial nerves II-XII grossly intact. Motor strength 5/5 in all extremities. Sensory grossly intact. Cerebellar exam normal. Normal gait. Vital Signs: 18:12 BP 144 / 65; Pulse 83; Resp 16; Temp 98.3; Pulse Ox 100% on R/A; Weight 83.91 kg; hb Height 6 ft. 2 in. (187.96 cm); Pain /10; 19:14 BP 121 / 73; Pulse 83; Resp 18; Pulse Ox 96% on R/A; aa1 18:12 Body Mass Index 23.75 (83.91 kg, 187.96 cm) hb MDM: 18:14 Patient medically screened. jr8 19:10 Data reviewed: vital signs, nurses notes, lab test result(s), EKG, radiologic studies, jr8 plain films, and as a result, I will discharge patient. Data interpreted: Pulse oximetry: on room air is 100 %. Interpretation: normal. Counseling: I had a detailed discussion with the patient and/or guardian regarding: the historical points, exam findings, and any diagnostic results supporting the discharge/admit diagnosis, lab results, radiology results, the need for outpatient follow up, a family practitioner, to return to the emergency department if symptoms worsen or persist or if there are any questions or concerns that arise at home. 02/11 18:35 Order name: CBC with Diff; Complete Time: 19:08 [facility] 02/11 18:35 Order name: Basic Metabolic Panel; Complete Time: 19:28 [facility] 02/11 18:35 Order name: EKG - Nurse/Tech; Complete Time: 19:12 8 02/11 18:35 Order name: EKG; Complete Time: 18:36 jr8 02/11 18:35 Order name: XRAY Chest Pa And Lat (2 Views); Complete Time: 19:08 [facility] 02/11 18:35 Order name: IV; Complete Time: 18:52 jr8 Administered Medications: No medications were administered Disposition: 02/11/19 19:28 Discharged to Home. Impression: Shortness of breath, Panic disorder [episodic paroxysmal anxiety] without agoraphobia. - Condition is Stable. - Discharge Instructions: Panic Attacks, Shortness of Breath. - Medication Reconciliation Form, Thank You Letter, Antibiotic Education, Prescription Opioid Use form. - Follow up: Private Physician; When: 2 - 3 days; Reason: Recheck today's complaints, Continuance of care, Re-evaluation by your physician. - Problem is new. - Symptoms have improved. Signatures: Dispatcher [employer] EDAiyana Peguero RN RN aa1 Ganga Urban PA PA jr8 Isa Murphy RN RN hb Corrections: (The following items were deleted from the chart) 19:41 19:28 02/11/2019 19:28 Discharged to Home. Impression: Shortness of breath; Panic aa1 disorder [episodic paroxysmal anxiety] without agoraphobia. Condition is Stable. Forms are Medication Reconciliation Form, Thank You Letter, Antibiotic Education, Prescription Opioid Use. Follow up: Private Physician; When: 2 - 3 days; Reason: Recheck today's complaints, Continuance of care, Re-evaluation by your physician. Problem is new. Symptoms have improved. jr8
--- NOTE | 2019-02-11 19:29 | ER ---
Nurse's Notes [facility] Name: Margarito Schultz Age: 18 yrs Sex: Male : 2000 Arrival Date: 02/11/2019 Time: 18:05 Bed 14 Private MD: Diagnosis: Shortness of breath;Panic disorder [episodic paroxysmal anxiety] without agoraphobia Presentation: 02/11 18:09 Presenting complaint: Productive cough, SOB, and chest tightness x 1 week. Recently hb seen by PCP for same s/s, on prednisone day 3. Hx of asthma. Transition of care: patient was not received from another setting of care. Onset of symptoms was February 05, 2019. Risk Assessment: Do you want to hurt yourself or someone else? Patient reports no desire to harm self or others. Initial Sepsis Screen: Does the patient meet any 2 criteria? No. Patient's initial sepsis screen is negative. Does the patient have a suspected source of infection? No. Patient's initial sepsis screen is negative. Care prior to arrival: None. 18:09 Method Of Arrival: Ambulatory hb 18:09 Acuity: JI 3 hb Historical: - Allergies: 18:12 No Known Allergies; hb - PMHx: 18:12 Asthma; hb - Immunization history:: Adult Immunizations up to date. - Social history:: Smoking status: Patient/guardian denies using tobacco. - Ebola Screening: : No symptoms or risks identified at this time. Screenin:20 Abuse screen: Denies threats or abuse. Denies injuries from another. Nutritional ca1 screening: No deficits noted. Tuberculosis screening: No symptoms or risk factors identified. Fall Risk IV access (20 points). Assessment: 18:20 General: Appears in no apparent distress. comfortable, Behavior is calm, cooperative, ca1 appropriate for age. Pain: Denies pain. Neuro: Level of Consciousness is awake, alert, obeys commands, Oriented to person, place, time, situation. Cardiovascular: Heart tones S1 S2 present Capillary refill < 3 seconds Patient's skin is warm and dry. Respiratory: Reports shortness of breath on exertion Airway is patent Respiratory effort is even, unlabored, Respiratory pattern is regular, symmetrical, Breath sounds are clear bilaterally. Denies cough. GI: Abdomen is flat, non-distended, Bowel sounds present X 4 quads. Abd is soft and non tender X 4 quads. : No deficits noted. No signs and/or symptoms were reported regarding the genitourinary system. EENT: Reports nasal congestion. Derm: Skin is intact, is healthy with good turgor, Skin is pink, warm \T\ dry. Musculoskeletal: Circulation, motion, and sensation intact. Capillary refill < 3 seconds, Range of motion: intact in all extremities. 19:14 Reassessment: Patient appears in no apparent distress at this time. Patient and/or aa1 family updated on plan of care and expected duration. Pain level reassessed. Patient is alert, oriented x 3, equal unlabored respirations, skin warm/dry/pink. Awaiting lab results. 19:35 Reassessment: Patient appears in no apparent distress at this time. Patient is alert, aa1 oriented x 3, equal unlabored respirations, skin warm/dry/pink. Discussed d/c \T\ f/u instructions with pt; denies questions or concerns at this time. Ambulatory to lobby with steady gait Patient denies pain at this time. Patient states feeling better. Vital Signs: 18:12 BP 144 / 65; Pulse 83; Resp 16; Temp 98.3; Pulse Ox 100% on R/A; Weight 83.91 kg; hb Height 6 ft. 2 in. (187.96 cm); Pain 1/10; 19:14 BP 121 / 73; Pulse 83; Resp 18; Pulse Ox 96% on R/A; aa1 18:12 Body Mass Index 23.75 (83.91 kg, 187.96 cm) hb ED Course: 18:05 Patient arrived in ED. am2 18:12 Triage completed. hb 18:12 Arm band placed on left wrist. hb 18:14 Ganga Urban PA is PHCP. jr8 18:14 Greg Wheeler MD is Attending Physician. jr8 18:20 Jimena Fry RN is Primary Nurse. ca1 18:20 Patient has correct armband on for positive identification. Placed in gown. Bed in low ca1 position. Call light in reach. Pulse ox on. NIBP on. Warm blanket given. 18:50 Inserted saline lock: 20 gauge in right antecubital area, using aseptic technique. ca1 Blood collected. 18:52 Basic Metabolic Panel Sent. ca1 18:52 CBC with Diff Sent. ca1 19:01 XRAY Chest Pa And Lat (2 Views) In Process Unspecified. EDMS 19:35 No provider procedures requiring assistance completed. IV discontinued, intact, aa1 bleeding controlled, No redness/swelling at site. Pressure dressing applied. Administered Medications: No medications were administered Outcome: 19:28 Discharge ordered by . susie 19:35 Discharged to home ambulatory. aa1 19:35 Condition: good 19:35 Discharge instructions given to patient, Instructed on discharge instructions, follow up and referral plans. Demonstrated understanding of instructions, follow-up care. 19:41 Patient left the ED. aa1 Signatures: Dispatcher [employer] EDMS Aiyana Oseguera RN RN aa1 Ganga Urban PA PA jr8 Isa Murphy RN RN Myriam Joseph am2 Jimena Fry RN RN ca1 Corrections: (The following items were deleted from the chart) 19:03 18:20 Respiratory: Reports shortness of breath on exertion Airway is patent Respiratory ca1 effort is even, unlabored, Respiratory pattern is regular, symmetrical, Breath sounds are clear bilaterally. ca1
--- NOTE | 2019-02-12 16:57 | EKG ---
Test Date: 2019-02-11 Test Time: 19:09:01 C Winforms Developer: JAVIER MEASUREMENT RESULTS: Intervals: Rate: 68 UT: 156 QRSD: 90 QT: 368 QTc: 391 [place]: P: 4 UT: 156 QRS: 72 T: 62 INTERPRETIVE STATEMENTS: Normal sinus rhythm Normal ECG Compared to ECG 11/19/2018 19:19:06 No significant changes Electronically Signed On 02-12-19 16:56:04 CDT by Po Berrios
== END 2019-02-11 19:41 | disposition home or self-care (01) ==
LOC: ER 18:03
DX: F41.0 Panic disorder [episodic paroxysmal anxiety] (principal)
CPT/HCPCS: 36415; 71046; 80048; 85025; 93005; 99284